=== PATIENT | female | born 1960 | race Caucasian/White ===

== ENCOUNTER 2021-07-16 08:10 | Outpatient (CLI) | payer BC | END 2021-07-16 08:11 | disposition home or self-care (01) | LOC: CSHMAMMO 08:10 | PROVIDERS: ATTEND Family Medicine | DX: Z12.31 Encounter for screening mammogram for malignant neoplasm of breast (principal); Z91.89 Other specified personal risk factors, not elsewhere classified | CPT/HCPCS: 77063; 77067 ==

== ENCOUNTER 2022-09-08 08:44 | Outpatient (CLI) | payer BC | END 2022-09-08 08:45 | disposition home or self-care (01) | LOC: CSHMAMMO 08:44 | PROVIDERS: ATTEND Family Medicine | DX: Z12.31 Encounter for screening mammogram for malignant neoplasm of breast (principal); Z91.89 Other specified personal risk factors, not elsewhere classified | CPT/HCPCS: 77063; 77067 ==

== ENCOUNTER 2025-03-08 07:09 | Outpatient (CLI) | payer BC ==
[2025-03-08] MEDS ORDERED: Iopamidol 300 61% 100 ML VIAL FS ONE (13:40)
== END 2025-03-08 07:10 | disposition home or self-care (01) ==
LOC: CSHCT 07:09
PROVIDERS: ATTEND Physician Assistant Medical
DX: R10.11 Right upper quadrant pain (principal); K59.09 Other constipation
CPT/HCPCS: 74177; Q9967